=== PATIENT | male | born 1995 | race Caucasian/White ===

== ENCOUNTER 2022-11-20 15:54 | Emergency (ER) | payer OTHER ==
[~2022-11-20] VITALS: Ht 185.4 cm; Wt 83.0 kg
[2022-11-20 15:57] VITALS: BP 130/74
[2022-11-20] MEDS ORDERED: KETOROLAC 30 MG/ML VIAL IM ONE (16:30)
[2022-11-20] MEDS ORDERED: AMOX-999 PO (16:34)
[2022-11-20] MEDS ORDERED: IBUP-1842 PO (16:34)
[2022-11-20 16:50] VITALS: BP 125/71
--- NOTE | 2022-11-20 16:50 | NUR ---
Patient discharged with v/s stable. Written and verbal after care instructions given and explained. Patient alert, oriented and verbalized understanding of instructions. Ambulatory with steady gait. All questions addressed prior to discharge. ID band removed. Patient advised to follow up with PMD. Rx of augmentin and ibuprofen given. Patient educated on indication of medication including possible reaction and side effects. Opportunity to ask questions provided and answered.
== END 2022-11-20 17:51 | disposition home or self-care (01) ==
LOC: EDSEX 15:54 → MED 15:54
DX: S61.250A Open bite of right index finger without damage to nail, initial encounter (principal); S61.252A Open bite of right middle finger without damage to nail, initial encounter; S61.251A Open bite of left index finger without damage to nail, initial encounter; S61.253A Open bite of left middle finger without damage to nail, initial encounter; S61.255A Open bite of left ring finger without damage to nail, initial encounter; S60.512A Abrasion of left hand, initial encounter; Z79.1 Long term (current) use of non-steroidal anti-inflammatories (NSAID); Z79.2 Long term (current) use of antibiotics; W55.01XA Bitten by cat, initial encounter; Y93.89 Activity, other specified; Y92.89 Other specified places as the place of occurrence of the external cause; Y99.8 Other external cause status
CPT/HCPCS: 96372; 99283; J1885